=== PATIENT | female | born 1950 | race Caucasian/White ===

== ENCOUNTER 2017-07-16 02:12 | Emergency (ER) | payer MEDICARE, BC ==
[~2017-07-16] VITALS: Ht 157.5 cm; Wt 62.0 kg
[2017-07-16 02:18] VITALS: Ht 157.5 cm; Wt 62.0 kg
[2017-07-16] MEDS ORDERED: SOD CHLORIDE 0.9% 500 ML IV STA (03:02)
[2017-07-16 03:30] LABS: BASOPHIL # 0.1 10^3/ul (0.0-0.1); BASOPHILS % 0.8 % (0.0-2.0); EOSINOPHILS # 0.2 10^3/ul (0.0-0.5); EOSINOPHILS % 3.6 % (0.0-7.0); HEMATOCRIT 44.8 % (37.0-47.0); HEMOGLOBIN 13.9 g/dl (12.0-16.0); LYMPHOCYTES # 2.2 10^3/ul (0.8-2.9); LYMPHOCYTES % 33.2 % (15.0-51.0); MEAN CORPUSCULAR HEMOGLOBIN 28.8 pg (29.0-33.0); MEAN CORPUSCULAR VOLUME 92.9 fl (82.0-101.0); MEAN PLATELET VOLUME 9.7 fl (7.4-10.4); MONOCYTE # 0.8 10^3/ul (0.3-0.9); MONOCYTES % 12.5 % (0.0-11.0); NEUTROPHIL # 3.3 10^3/ul (1.6-7.5); NEUTROPHILS % 49.6 % (39.0-77.0); PLATELET COUNT 323 10^3/UL (140-415); RED BLOOD COUNT 4.82 10^6/ul (4.20-5.40); RED CELL DISTRIBUTION WIDTH 12.8 % (11.5-14.5); WHITE BLOOD COUNT 6.7 10^3/ul (4.8-10.8)
[2017-07-16 03:31] LABS: ADD UMIC YES; UR ASCORBIC ACID NEGATIVE (NEGATIVE); UR BACTERIA FEW /HPF (NONE SEEN); UR BILIRUBIN (Dip) NEGATIVE (NEGATIVE); UR BLOOD (Dip) 1+ mg/dL (NEGATIVE); UR CLARITY CLEAR (CLEAR); UR COLOR YELLOW (YELLOW); UR GLUCOSE (Dip) NEGATIVE (NEGATIVE); UR KETONES (Dip) NEGATIVE (NEGATIVE); UR LEUKOCYTE ESTERASE (Dip) TRACE Leu/ul (NEGATIVE); UR NITRITE (Dip) NEGATIVE (NEGATIVE); UR RBC 5 /HPF (0-5); UR SPECIFIC GRAVITY (Dip) 1.026 (1.003-1.030); UR TOTAL PROTEIN (Dip) NEGATIVE (NEGATIVE); UR UROBILINOGEN (Dip) NEGATIVE (NEGATIVE)
[2017-07-16 03:38] LABS: ALANINE AMINOTRANSFERASE 36 IU/L (13-69); ALBUMIN 4.9 g/dl (3.3-4.9); ALBUMIN/GLOBULIN RATIO 1.36; ALKALINE PHOSPHATASE 62 IU/L (42-121); ANION GAP 14 (8-16); ASPARTATE AMINO TRANSFERASE 32 IU/L (15-46); BILIRUBIN,INDIRECT 0.2 mg/dl (0-1.1); BILIRUBIN,TOTAL 0.2 mg/dl (0.2-1.3); BLOOD UREA NITROGEN 19 mg/dl (7-20); CALCIUM 9.4 mg/dl (8.4-10.2); CARBON DIOXIDE 28 mmol/L (21-31); CHLORIDE 106 mmol/L (97-110); CREATININE 1.03 mg/dl (0.44-1.00); GLUCOSE 96 mg/dl (70-220); POTASSIUM 3.9 mmol/L (3.5-5.1); SODIUM 144 mmol/L (135-144); TOTAL PROTEIN 8.5 g/dl (6.1-8.1)
[2017-07-16 03:39] LABS: ETHANOL < 10.0 mg/dl
[2017-07-16 03:49] LABS: BARBITURATES NEGATIVE (NEGATIVE); BENZODIAZEPINES NEGATIVE (NEGATIVE); CANNABINOIDS NEGATIVE (NEGATIVE); COCAINE NEGATIVE (NEGATIVE); OPIATES NEGATIVE (NEGATIVE)
[2017-07-16] MEDS ORDERED: CEFTRIAXONE 1 GM/50 ML (PMX) 50 ML IVPB ONE (04:30)
--- NOTE | 2017-07-16 05:04 | RADRPT ---
PROCEDURE: CT BRAIN WITHOUT CONTRAST CLINICAL INDICATION: 66-year-old female with change in mental status. TECHNIQUE: The study was performed utilizing [employer] VCT 64-slice CT scanner. Direct axial sections were obtained from the foramen magnum to the vertex without the use of intravenous contrast material. Sagittal and coronal reformations were obtained. One or more the following dose reduction techniques were utilized: automated exposure control, adjustment of the mA and/or kV according to p atient's size or use of iterative reconstruction technique. The images were viewed on a PACS worksta tion. CTD/vol = 42.3 mGy; Total Exam DLP = 720.2 mGy-cm. COMPARISON: None. FINDINGS: There is mild degree of diffuse cortical and central atrophy with compensatory ventricular enlargeme nt. There is no evidence for mass effect or midline shift. There are periventricular areas of decr eased density consistent with microangiopathic ischemic changes. There is no evidence for acute int ra or extra-axial blood. There is a focus of gas within the left cavernous sinus region most likely introduced via an intravenous line. The bony calvarium is intact. There is minimal mucosal thickenin g within the ethmoid air cells and posterior left sphenoid sinus. The mastoid air cells are without significant soft tissue. IMPRESSION: 1. Mild diffuse atrophy. 2. Microangiopathic ischemic changes. .Santi Anderson MD, Date Time Electronically viewed and signed by .Santi Anderson MD, on 07/16/2017 05:04 .Zee/
[2017-07-16] MEDS ORDERED: CIPR500T4 PO (05:28)
[2017-07-16] MEDS ORDERED: ASPIRIN 81 MG TAB PO ONE (05:30)
--- NOTE | 2017-07-16 05:40 | ERD ---
ER Documentation Chief Complaint Date/Time DATE: 07/16/17 TIME: 05:30 Chief Complaint states been disoriented to time x 30 minutes. aox4 during intake HPI This 66-year-old female presents with acute onset disorientation. She had no loss of consciousness and no focal weaknesses. She remembers the episode. It is resolved now. She is feeling better and has no symptoms. No chest pain shortness of breath lightheadedness or dizziness. She has not had any fevers or chills lately. He has had some pelvic discomfort described as a stiffness. ROS All systems reviewed and are negative except as per history of present illness. Medications Home Meds Active Scripts Ciprofloxacin Hcl* (Ciprofloxacin Hcl*) 500 Mg Tablet, 500 MG PO BID for 5 Days , TAB Prov:ROJAS WALTON DO 07/16/17 Allergies Allergies: Coded Allergies: No Known Drug Allergies (Verified Allergy, Unknown, 07/16/17) PMhx/Soc Medical and Surgical Hx: pt denies Medical Hx, pt denies Surgical Hx Hx Alcohol Use: Yes Hx Substance Use: No Hx Tobacco Use: No Smoking Status: Never smoker Physical Exam Vitals Vital Signs Date Time Temp Pulse Resp B/P Pulse Ox O2 Delivery O2 Flow Rate FiO2 07/16/17 04:01 60 18 119/65 99 Room Air 07/16/17 02:18 98.3 80 20 143/63 97 Physical Exam Const: [] No distress, Head: Atraumatic Eyes: Normal Conjunctiva, EOMI, PERRLA ENT: Normal External Ears, Nose and Mouth. Neck: Full range of motion..~ No meningismus. Resp: Clear to auscultation bilaterally Cardio: Regular rate and rhythm, no murmurs Abd: Soft, non tender, non distended. Normal bowel sounds Skin: No petechiae or rashes Back: No midline or flank tenderness Ext: No cyanosis, or edema Neur: Awake and alert and oriented 3, cranial nerves II through XII intact, no cerebellar deficits, normal gait Psych: Normal Mood and Affect Result Diagram: 07/16/17 0240 07/16/17 0240 Results 24 hrs Laboratory Tests Test 07/16/17 02:40 White Blood Count 6.710^3/ul Red Blood Count 4.8210^6/ul Hemoglobin 13.9g/dl Hematocrit 44.8% Mean Corpuscular Volume 92.9fl Mean Corpuscular Hemoglobin 28.8pg Mean Corpuscular Hemoglobin Concent 31.0g/dl Red Cell Distribution Width 12.8% Platelet Count 00527^3/UL Mean Platelet Volume 9.7fl Neutrophils % 49.6% Lymphocytes % 33.2% Monocytes % 12.5% Eosinophils % 3.6% Basophils % 0.8% Nucleated Red Blood Cells % 0.0/100WBC Neutrophils # 3.310^3/ul Lymphocytes # 2.210^3/ul Monocytes # 0.810^3/ul Eosinophils # 0.210^3/ul Basophils # 0.110^3/ul Nucleated Red Blood Cells # 0.010^3/ul Urine Color YELLOW Urine Clarity CLEAR Urine pH 5.0 Urine Specific [place] 1.026 Urine Ketones NEGATIVEmg/dL Urine Nitrite NEGATIVEmg/dL Urine Bilirubin NEGATIVEmg/dL Urine Urobilinogen NEGATIVEmg/dL Urine Leukocyte Esterase TRACELeu/ul Urine Microscopic RBC 5/HPF Urine Microscopic WBC 3/HPF Urine Bacteria FEW/HPF Urine Hemoglobin 1+mg/dL Urine Glucose NEGATIVEmg/dL Urine Total Protein NEGATIVEmg/dl Sodium Level 144mmol/L Potassium Level 3.9mmol/L Chloride Level 106mmol/L Carbon Dioxide Level 28mmol/L Anion Gap 14 Blood Urea Nitrogen 19mg/dl Creatinine 1.03mg/dl Glucose Level 96mg/dl Calcium Level 9.4mg/dl Total Bilirubin 0.2mg/dl Direct Bilirubin 0.00mg/dl Indirect Bilirubin 0.2mg/dl Aspartate Amino Transf (AST/SGOT) 32IU/L Alanine Aminotransferase (ALT/SGPT) 36IU/L Alkaline Phosphatase 62IU/L Total Protein 8.5g/dl Albumin 4.9g/dl Globulin 3.60g/dl Albumin/Globulin Ratio 1.36 Free Thyroxine Index 2.54ug/ml Thyroxine (T4) 7.7ug/dl Triiodothyronine (T3) Uptake 33.0% Urine Opiates Screen NEGATIVE Urine Barbiturates NEGATIVE Urine Amphetamines Screen NEGATIVE Urine Benzodiazepines Screen NEGATIVE Urine Cocaine Screen NEGATIVE Urine Cannabinoids NEGATIVE Ethyl Alcohol Level < 10.0mg/dl Current Medications Medications (Trade) Dose Ordered Sig/Zoie Route PRN Reason Start Time Stop Time Status Last Admin Dose Admin Sodium Chloride 500 ml @ 500 mls/hr Q1H STAT IV 07/16/17 03:02 07/16/17 04:01 DC 07/16/17 03:07 Ceftriaxone Sodium (Rocephin) 50 ml @ 100 mls/hr ONCE ONCE IVPB 07/16/17 04:30 07/16/17 04:59 DC 07/16/17 04:42 Aspirin (Aspirin) 324 mg ONCE ONCE PO 07/16/17 05:30 07/16/17 05:31 UNV Procedures/MDM Concerning episode of disorientation resolved prior to ER visit. Possible TIA versus UTI. Urinalysis weakly positive for UTI. Urine culture was obtained. Patient was given a gram of Rocephin. When CT head returned with no acute process she was given an aspirin. She is kept on a monitor and had no signs of cardiac ischemia. Normal thyroid function. Discussed with patient and at length the reason for monitoring a TIA in the weakness of the urinalysis for infection. Sure decision-making was used in the family still would like to go home. Negative neurological exam with actually no abnormalities found except for the mildly elevated creatinine and leukocyte esterase and a few cells within the urinalysis. Discharging with Cipro and instructions see primary care doctor tomorrow or the next day and return to emergency room immediately for any further concerning symptoms. EKG interpretation: Normal sinus rhythm rate of 68, normal axis, normal intervals, no ST or T-wave changes concerning for acute ischemia. 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 Microangiopathic ischemic changes noted by radiologist. Departure Diagnosis: Primary Impression: TIA (transient ischemic attack) Additional Impressions: UTI (urinary tract infection) Altered mental status Condition: Stable Patient Instructions: What Is a TIA?, Understanding Urinary Tract Infections ( UTIs) Additional Instructions: Call your primary care doctor TOMORROW for an appointment during the next 1-2 days.See the doctor sooner or return here if your condition worsens before your appointment time. ROJAS WALTON DO Jul 16, 2017 05:40
[2017-07-16 05:41] VITALS: BP 115/66; PULSE 62; RESP 20
== END 2017-07-16 05:46 | disposition home or self-care (01) ==
LOC: E/R 02:12
DX: G45.9 Transient cerebral ischemic attack, unspecified (principal); N39.0 Urinary tract infection, site not specified; R41.82 Altered mental status, unspecified; R10.2 Pelvic and perineal pain
CPT/HCPCS: 36415; 70450; 80053; 80306; 80307; 81001; 84436; 84479; 85025; 87086; 93005; 96374; 99285; J0696; J7040